=== PATIENT | male | born 1955 | race Caucasian/White ===

== ENCOUNTER 2018-08-01 09:02 | Emergency (ER) | payer BC ==
[~2018-08-01] VITALS: Ht 182.9 cm; Wt 95.5 kg
[2018-08-01] MEDS ORDERED: ASPIRIN LOW DOS81 M3 (10:04)
[2018-08-01] MEDS ORDERED: OMEPRAZOLE20 M2 PO (10:04)
[2018-08-01] MEDS ORDERED: TAMSULOSIN HCL0.4 MG PO (10:04)
[2018-08-01] MEDS ORDERED: AMLODIPINE BESY10 MG PO (10:07)
[2018-08-01 10:28] LABS: HEMATOCRIT 43.2 % (39.0-50.0); HEMOGLOBIN 14.7 g/dl (14.0-18.0); IMMATURE GRANULOCYTES 0.4 % (0.0-5.0); MEAN CELL VOLUME 90.2 fL CALC (80.0-100.0); MEAN CORPUSCULAR HGB 30.7 pG CALC (26.0-32.0); NEUT# 6.91 thou/uL (1.82-7.42); RED BLOOD COUNT 4.79 mill/uL (4.70-6.10)
[2018-08-01 10:34] LABS: URINE BILIRUBIN - DIPSTICK NEGATIVE (NEGATIVE); URINE BLOOD DIPSTICK TRACE-LYSED (NEGATIVE); URINE COLOR YELLOW; URINE GLUCOSE - DIPSTICK NEGATIVE (NEGATIVE); URINE KETONE NEGATIVE (NEGATIVE); URINE LEUK ESTERASE NEGATIVE (NEGATIVE); URINE NITRITE - DIPSTICK NEGATIVE (Negative); URINE PH 6.5 (4.5-8.0); URINE PROTEIN - DIPSTICK 30 mg/dL (NEG-TRACE); URINE SPECIFIC GRAVITY 1.015; URINE UROBILINOGEN - DIPSTICK 0.2 E.U./dL (0.2)
[2018-08-01 10:48] LABS: URINE SQUAMOUS EPITHELIAL CELL FEW EPI/hpf (0-FEW)
[2018-08-01 11:18] LABS: ALBUMIN 4.8 g/dL (3.2-5.0); ALKALINE PHOSPHATASE 68 u/l (38-126); AMYLASE 67 u/l (30-110); ANION GAP 16 (6-22 (CALC)); BILIRUBIN, TOTAL 0.6 mg/dL (0.0-1.4); BUN 13 mg/dL (8-23); BUN/CREATININE RATIO 16 (12-20 (CALC)); CARBON DIOXIDE 24 mmol/l (22-30); CHLORIDE 100 mmol/l (95-108); CREATININE 0.8 mg/dL (0.7-1.3); GFR > 60 ML/MIN (>=60 (CALC)); GFR FOR AFR.AMER. > 60 ML/MIN (>=60 (CALC)); LIPASE 93 u/l (23-300); POTASSIUM 4.3 mmol/l (3.5-5.1); SGOT/AST 23 u/l (19-48); SODIUM 136 mmol/l (137-146); TOTAL PROTEIN 7.6 g/dL (6.3-8.2)
[2018-08-01 11:28] LABS: MYOGLOBIN 36 ng/mL (0 - 121)
[2018-08-01] MEDS ORDERED: TRAMADOL HCL50 MG PO (12:08)
[2018-08-01] MEDS ORDERED: PRILOSEC20 MG PO (12:08)
[2018-08-01 12:11] VITALS: BP 147/84
== END 2018-08-01 12:41 | disposition home or self-care (01) | DRG 392 ==
LOC: ED 09:02
PROVIDERS: Family Medicine
DX: K29.70 Gastritis, unspecified, without bleeding (principal); I10 Essential (primary) hypertension
CPT/HCPCS: S0164

== ENCOUNTER 2021-10-19 09:16 | Observation (INO) | payer MEDICARE ==
[2021-10-19] VITALS (22 sets, daily range): BP systolic 94–128; BP diastolic 60–91
[~2021-10-19] VITALS: Ht 182.9 cm; Wt 90.0 kg
[~2021-10-19 09:16] MED LIST: AMLODIPINE BESY10 MG PO; ASPIRIN 81 LOW81 MG PO; OMEPRAZOLE20 M2 PO; PRILOSEC20 MG PO; TAMSULOSIN HCL0.4 MG PO; TRAMADOL HCL50 MG PO
[2021-10-19 09:44] LABS: HEMATOCRIT 49.1 % (39.0-50.0); HEMOGLOBIN 16.4 g/dl (14.0-18.0); IMMATURE GRANULOCYTES 0.1 % (0.0-5.0); MEAN CELL VOLUME 91.6 fL CALC (80.0-100.0); MEAN CORPUSCULAR HGB 30.6 pG CALC (26.0-32.0); MEAN CORPUSCULAR HGB CONC 33.4 g/dL CAL (32.0-36.0); NEUT# 3.43 thou/uL (1.82-7.42); RED BLOOD COUNT 5.36 mill/uL (4.70-6.10); RED CELL DISTRI WIDTH 12.8 % (11.5-15.5)
[2021-10-19 09:58] LABS: ALBUMIN 4.3 g/dL (3.2-5.0); ALKALINE PHOSPHATASE 65 u/l (38-126); ANION GAP 13 (6-22 (CALC)); BILIRUBIN, TOTAL 0.6 mg/dL (0.0-1.4); BUN 20 mg/dL (8-23); BUN/CREATININE RATIO 18 (12-20 (CALC)); CARBON DIOXIDE 22 mmol/l (22-30); CHLORIDE 106 mmol/l (95-108); CREATININE 1.1 mg/dL (0.7-1.3); GFR > 60 ML/MIN (>=60 (CALC)); GFR FOR AFR.AMER. > 60 ML/MIN (>=60 (CALC)); POTASSIUM 3.9 mmol/l (3.5-5.1); SGOT/AST 25 u/l (19-48); SODIUM 137 mmol/l (137-146); TOTAL PROTEIN 7.3 g/dL (6.3-8.2)
[2021-10-19] MEDS ORDERED: PRAVASTATIN20 MG PO (10:00)
[2021-10-20 00:46] VITALS: BP 134/78
[2021-10-20 04:09] VITALS: BP 131/78
[2021-10-20 05:24] LABS: MEAN CORPUSCULAR HGB 31.8 pG CALC (26.0-32.0); MEAN CORPUSCULAR HGB CONC 34.2 g/dL CAL (32.0-36.0); RED BLOOD COUNT 4.12 mill/uL (4.70-6.10); RED CELL DISTRI WIDTH 12.8 % (11.5-15.5)
[2021-10-20 05:26] LABS: HEMATOCRIT 38.3 % (39.0-50.0); HEMOGLOBIN 13.1 g/dl (14.0-18.0)
[2021-10-20 05:43] LABS: ANION GAP 12 (6-22 (CALC)); BUN 19 mg/dL (8-23); BUN/CREATININE RATIO 21 (12-20 (CALC)); CARBON DIOXIDE 21 mmol/l (22-30); CHLORIDE 107 mmol/l (95-108); CREATININE 0.9 mg/dL (0.7-1.3); GFR > 60 ML/MIN (>=60 (CALC)); GFR FOR AFR.AMER. > 60 ML/MIN (>=60 (CALC)); MAGNESIUM 2.1 mg/dL (1.6-2.3); POTASSIUM 4.1 mmol/l (3.5-5.1); SODIUM 136 mmol/l (137-146)
[2021-10-20 06:35] VITALS: BP 135/75
[2021-10-20 06:44] VITALS: BP 135/75
[2021-10-20 09:49] VITALS: BP 147/83
[2021-10-20 12:32] VITALS: BP 147/83
[2021-10-20] MEDS ORDERED: MEDDOSEPAK PO (12:49)
[2021-10-20] MEDS ORDERED: PEPCID20 MG PO (12:50)
[2021-10-20] MEDS ORDERED: EPINEPHRIN0.3 MG/0.3 IM (12:53)
== END 2021-10-20 15:25 | disposition home or self-care (01) ==
LOC: ED 09:16 → ED-I 09:29 → ED 09:29 → ED-I 10:20 → ED 10:37 → MS2 10:38
PROVIDERS: Family Medicine; ADMIT Hospitalist; ATTEND Hospitalist
DX: T63.441A Toxic effect of venom of bees, accidental (unintentional), initial encounter (principal); L50.0 Allergic urticaria; R22.0 Localized swelling, mass and lump, head; I10 Essential (primary) hypertension; E78.00 Pure hypercholesterolemia, unspecified; Z20.822 Contact with and (suspected) exposure to COVID-19

== ENCOUNTER 2023-06-15 22:15 | Emergency (ER) | payer MEDICARE ==
[~2023-06-15] VITALS: Ht 182.9 cm; Wt 94.3 kg
[~2023-06-15 22:15] MED LIST changes: +EPINEPHRIN0.3 MG/0.3 IM; +MEDDOSEPAK PO; +PEPCID20 MG PO; +PRAVASTATIN20 MG PO
[2023-06-15 23:00] LABS: URINE BILIRUBIN - DIPSTICK Negative (NEGATIVE); URINE BLOOD DIPSTICK Trace-lysed (NEGATIVE); URINE GLUCOSE - DIPSTICK Negative (NEGATIVE); URINE KETONE Trace mg/dL (NEGATIVE); URINE LEUK ESTERASE Negative (NEGATIVE); URINE NITRITE - DIPSTICK Negative (Negative); URINE PH 7.5 (4.5-8.0); URINE PROTEIN - DIPSTICK 100 mg/dL (NEG-TRACE); URINE UROBILINOGEN - DIPSTICK 0.2 E.U./dL (0.2)
[2023-06-15 23:01] LABS: BASO% 0.1 % (0-3); HEMATOCRIT 43.6 % (39.0-50.0); IMMATURE GRANULOCYTES 0.2 % (0.0-5.0); LYMPH% 5.1 % (15-41); MEAN CELL VOLUME 91.6 fL CALC (80.0-100.0); MEAN CORPUSCULAR HGB 31.9 pG CALC (26.0-32.0); MEAN CORPUSCULAR HGB CONC 34.9 g/dL CAL (32.0-36.0); NEUT# 13.79 thou/uL (1.82-7.42); NEUT% 85.6 % (42-76); RED BLOOD COUNT 4.76 mill/uL (4.70-6.10); RED CELL DISTRI WIDTH 12.5 % (11.5-15.5)
[2023-06-15 23:02] LABS: URINE COLOR Yellow
[2023-06-15 23:02] LABS: HEMOGLOBIN 15.2 g/dl (14.0-18.0)
[2023-06-15 23:04] LABS: URINE RBC 0-2 RBC/hpf (0-5)
[2023-06-15 23:05] LABS: URINE AMORPH SEDIMENT FEW hpf (NONE-FER)
[2023-06-15 23:08] VITALS: BP 132/83
[2023-06-15 23:09] VITALS: BP 112/85
[2023-06-15 23:12] LABS: ALBUMIN 4.7 g/dL (3.2-5.0); ALKALINE PHOSPHATASE 64 u/l (38-126); BUN 11 mg/dL (8-23); BUN/CREATININE RATIO 13 (12-20 (CALC)); CHLORIDE 100 mmol/l (95-108); CREATININE 0.8 mg/dL (0.7-1.3); GFR FOR AFR.AMER. > 60 ML/MIN (>=60 (CALC)); GFR OTHER RACES > 60 ML/MIN (>=60 (CALC)); LIPASE 100 u/l (23-300); POTASSIUM 3.9 mmol/l (3.5-5.1); SGOT/AST 25 u/l (19-48); SODIUM 135 mmol/l (137-146); TOTAL PROTEIN 7.3 g/dL (6.3-8.2)
[2023-06-15] MEDS ORDERED: PHILLIPS MOM311 MG PO (23:18)
[2023-06-15] MEDS ORDERED: TESTOSTERO (23:19)
[2023-06-15 23:22] LABS: ANION GAP 13 (6-22 (CALC)); BILIRUBIN, TOTAL 1.1 mg/dL (0.2-1.3); CARBON DIOXIDE 26 mmol/l (22-30)
[2023-06-15 23:30] VITALS: BP 113/82
[2023-06-16] VITALS: BP 120/82
[2023-06-16] MEDS ORDERED: OMEPRAZOLE20 MG PO (02:05)
[2023-06-16 02:44] VITALS: BP 120/82
== END 2023-06-16 02:50 | disposition home or self-care (01) ==
LOC: ED 22:15
PROVIDERS: Family Medicine
DX: R10.33 Periumbilical pain (principal); I10 Essential (primary) hypertension
CPT/HCPCS: Q9967; S0164